=== PATIENT | male | born 1960 | race Caucasian/White ===

== ENCOUNTER 2020-05-26 16:33 | Emergency (ER) | payer OTHER ==
[~2020-05-26] VITALS: Ht 177 cm; Wt 100.0 kg
--- NOTE | 2020-05-26 18:08 | Diagnostic Imaging Report ---
EXAMINATION: Left ankle, 3 views. HISTORY: Twisted ankle, pain and swelling. COMPARISON: None available. FINDINGS: There is an oblique fracture through the distal left fibula at the lateral malleolus. The fracture extends to the ankle mortise. Joint spaces are preserved. Mild soft tissue swelling about the left ankle. IMPRESSION: Minimally displaced oblique fracture through the distal left fibula. Dictated by: Dictated on workstation # [id number]
[2020-05-26] MEDS ORDERED: HYDROcodone/APAP 7.5 MG/325 MG (LORTAB, LORCET PLUS) TABLET PO ONE (18:30)
--- NOTE | 2020-05-26 18:35 | ED Lower Extremity ---
General Chief Complaint: Lower Extremity Stated Complaint: FALL/L ANKLE INJ Nursing Triage Note: THE PT IS ASSISTED TO THE ROOM BY WHEELCHAIR. NO DISTRESS IS SEEN ON ARRIVAL. LOC IS NORMAL FOR THE PT. THE PT C/OF LEFT ANKLE PAIN. THE LEFT ANKLE IS SWOLLEN AND PAINFULL. Nursing Sepsis Screen: No Definite Risk History of Present Illness Date Seen by Provider: May 26, 2020 Time Seen by Provider: 19:00 Initial Comments This is a healthy-appearing 59-year-old male who presents to the ER with complaints of left ankle pain after twisting his ankle while fishing yesterday around 1800. States he was able to walk on it initially, however pain has progressively worsened and is unbearable with weight bearing. He has been using crutches to offset weight and reduce pain. Took Tylenol at 10 AM, and applied ice, which he reports improved symptoms. Denies loss of sensation, numbness or tingling. Allergies and Home Medications Allergies Coded Allergies: No Known Drug Allergies (Unverified , 05/26/20) Home Medications Hydrocodone/Acetaminophen 1 Each Tablet, 1 EACH PO Q6H PRN for PAIN-BREAKTHROUGH Prescribed by: NICK RUELAS on 05/26/20 1840 Patient Home Medication List Home Medication List Reviewed: Yes Review of Systems Constitutional: no symptoms reported EENTM: no symptoms reported Respiratory: no symptoms reported Cardiovascular: no symptoms reported Gastrointestinal: no symptoms reported Genitourinary: no symptoms reported Musculoskeletal: see HPI Skin: other (left ankle bruising) Psychiatric/Neurological: No Symptoms Reported Past Oxnuuwm-Sbcqdm-Jxysyg Hx Patient Social History Recent Foreign Travel: No Contact w/Someone Who Travel: No Recent Infectious Disease Expo: No Physical Abuse: No Sexual Abuse: No Mistreated: No Fear: No Physical Exam Vital Signs Vital Signs - First Documented 05/26/20 05/26/20 16:46 18:55 Temp 37.5 Pulse 97 Resp 16 B/P (MAP) 102/71 (81) Pulse Ox 96 Capillary Refill : Less Than 3 Seconds Height, Weight, BMI Height: '" Weight: lbs. oz. kg; 31.00 BMI Method: General Appearance: WD/WN, no apparent distress HEENT: PERRL/EOMI, normal ENT inspection Neck: full range of motion, normal inspection Cardiovascular: regular rate, rhythm, no murmur Respiratory: lungs clear, normal breath sounds, no respiratory distress Knees: bilateral knee non-tender, bilateral knee normal inspection, bilateral knee normal range of motion Ankles: left ankle bone tenderness, left ankle ecchymosis, left ankle limited range of motion, left ankle pain, left ankle soft tissue tenderness, left ankle swelling Neurologic/Psychiatric: no motor/sensory deficits, alert, normal mood/affect, oriented x 3 Skin: normal color, warm/dry Progress/Results/Core Measures Results/Orders My Orders Orders - NICK RUELAS APRN Ankle, Left, 3 Views (05/26/20 17:20) Hydrocodone/Apap 7.5/325 Tab (Lortab 7. (05/26/20 18:30) Vital Signs/I&O 05/26/20 05/26/20 16:46 18:55 Temp 37.5 37.4 Pulse 97 97 Resp 16 16 B/P (MAP) 102/71 (81) 106/75 Pulse Ox 96 Blood Pressure Mean: 81 Progress Progress Note : Progress Note Examination of left ankle shows obvious bruising and marked amount of swelling which is concerning for fracture. Images of left ankle ordered. Images show minimally displaced distal fibula fracture. He was placed in posterior leg splint. Neurovascular intact pre-and post-splint application. Tolerated well. Discussed following up with orthopedic provider this week. Requested a list of local orthopedic providers in the area so he can check with his insurance to see who is in network before for scheduling an appointment. Reviewed discharge plan of care and he is agreeable with plan. Diagnostic Imaging Diagonstic Imaging: Xray Plain Films/CT/US/NM/MRI: other (ankle, left ) Comments NAME: HERNÁNDEZBREANA B MED REC#: [id number] PT STATUS: REG ER : 1960 PHYSICIAN: NICK RUELAS APRN ADMIT DATE: 05/26/20/ER Signed Date of Exam:05/26/20 ANKLE, LEFT, 3 VIEWS EXAMINATION: Left ankle, 3 views. HISTORY: Twisted ankle, pain and swelling. COMPARISON: None available. FINDINGS: There is an oblique fracture through the distal left fibula at the lateral malleolus. The fracture extends to the ankle mortise. Joint spaces are preserved. Mild soft tissue swelling about the left ankle. IMPRESSION: Minimally displaced oblique fracture through the distal left fibula. Dictated by: Dictated on workstation # [id number] Dict: 05/26/201803 Trans: 05/26/[address] [facility] [phone] Interpreted by: GEORGI FLAHERTY DO Electronically signed by: GEORGI FLAHERTY DO 05/26/201815 Departure Impression Primary Impression: Fracture of distal fibula Disposition: HOME, SELF-CARE Condition: Stable/Unchanged Departure-Patient Inst. Referrals: DEVEN SURESH MD (PCP/Family) Primary Care Physician Patient Instructions: Fibula Fracture, How to Use Crutches Add. Discharge Instructions: Plan: 1. Discharge home. 2. No weight bearing on right foot. Use crutches when walking at all times. 3. Keep leg elevated for the next 72 hours. Use ice 20 minutes at a time 4-6x per day for swelling and pain. 4. Do not get splint wet, cover with bag or saran wrap when showering. 5. Follow up with Orthopedic surgeon of choice on Thursday. Local providers include: Dr. Reynoso of [facility], Dr. Isaac or [facility], or Dr. Solis of [facility]. You may also contact [facility]. 6. Take Hydrocodone 7.5/325mg by mouth every six hours as needed breakthrough for pain. 7. Return for any new or concerning symptoms. All discharge instructions reviewed with patient and/or family. Voiced understanding. Scripts Hydrocodone/Acetaminophen (Hydrocodone-Acetamin 7.5-325) 1 Each Tablet 1 EACH PO Q6H PRN for PAIN-BREAKTHROUGH, #20 TAB 0 Refills Prov: NICK RUELAS [employer] 05/26/20 NICK RUELAS [employer] May 26, 2020 18:35
[2020-05-26] MEDS ORDERED: HYDR-3817 PO (18:40)
[2020-05-26 18:55] VITALS: BP 106/75
== END 2020-05-26 18:58 | disposition home or self-care (01) ==
LOC: ER 16:35
DX: S82.432A Displaced oblique fracture of shaft of left fibula, initial encounter for closed fracture (principal); X50.1XXA Overexertion from prolonged static or awkward postures, initial encounter; Y93.89 Activity, other specified
CPT/HCPCS: 73610

== ENCOUNTER 2021-08-27 05:34 | Outpatient (CLI) | payer OTHER ==
[~2021-08-27] VITALS: Ht 183 cm; Wt 106.8 kg
[~2021-08-27 05:34] MED LIST: HYDR-3817 PO
[2021-08-27] MEDS ORDERED: ALBU0.63 IH (14:09)
[2021-08-27] MEDS ORDERED: TMSL.4C PO (14:09)
[2021-08-27] MEDS ORDERED: ATOR10TA66 PO (14:09)
[2021-08-27] MEDS ORDERED: LEVO25TA5 PO (14:09)
== END 2021-08-27 14:18 | disposition home or self-care (01) ==
LOC: PREOP 05:34
PROVIDERS: ATTEND Internal Medicine
DX: Z01.818 Encounter for other preprocedural examination (principal)

== ENCOUNTER 2021-08-30 07:26 | Day surgery (SDC) | payer OTHER ==
--- NOTE | 2021-08-26 13:06 | HISTORY AND PHYSICAL ---
DATE OF SERVICE: COLONOSCOPY HISTORY AND PHYSICAL HISTORY OF PRESENT ILLNESS: The patient is a 60-year-old white male referred by Annette Sandoval, nurse practitioner working for Dr. Zuluaga, for screening colonoscopy. He reports one other screening procedure 10 years ago and did not recall that any polyps or any problems were noted. He seemed to be of average risk. He is not aware of any family history for colon cancer or polyposis syndromes. He denies abdominal pain. Rarely, he will have some rectal pain and the passage of a small amount of blood in the stool that he has attributed to hemorrhoids. He reports that he has had skin tag removed and he feels that there is another one present and asked if this could not be removed at the same time of the procedure. Reports that his weight has been stable. Denies any diarrhea or constipation problems. PAST SURGICAL HISTORY: Significant for C3 fusion following a fracture when he was 13 or 14 involving a trampoline accident. No other surgeries noted. PAST MEDICAL HISTORY: Significant for hyperlipidemia and gastroesophageal reflux as well as Tamika's thyroiditis and prostatism. MEDICATIONS: Include tamsulosin 0.4 mg daily, pantoprazole 40 mg daily, atorvastatin 40 mg daily, and Synthroid 75 mcg daily. SOCIAL HISTORY: The patient works for the [employer] reading [employer]. No past smoking or drinking history reported. FAMILY HISTORY: Father of complications of Alzheimer disease at the age of 79. Mother of a stroke at the age of 78. REVIEW OF SYSTEMS: CONSTITUTIONAL: Denies night sweats, chills, fever, change in weight. GASTROINTESTINAL: As noted in the HPI. PULMONARY: Denies cough, wheezing or shortness of breath. CARDIOVASCULAR: Denies chest pain, dyspnea on exertion, orthopnea, PND or pedal edema. PHYSICAL EXAMINATION: GENERAL: Reveals a white male, appeared to be in no acute distress. VITAL SIGNS: Blood pressure 120/80. HEENT: Unremarkable. Sclerae nonicteric. Heart rate 72 and regular. CHEST: Clear to auscultation. CARDIOVASCULAR: Reveals a regular rate and rhythm without murmur, S3 or S4. ABDOMEN: Soft, supple without mass, organomegaly or tenderness. The patient has described sensation sometimes when he is straining in the left groin area, was concerned about a hernia on evaluation with Valsalva, could palpate no evidence for inguinal hernia, and there was no evidence for ventral hernia on inspection either. EXTREMITIES: Reveal no cyanosis, clubbing or edema. ASSESSMENT: The patient is set up for a screening colonoscopy. Prep instructions with Suprep kit were given and questions were answered. I thank you for the referral of this pleasant gentleman. Job ID: [id number] DocumentID: [id number] Dictated Date: 08/26/2021 11:52:33 Administrative Medical Director Date: 08/26/2021 12:44:50 Dictated By: ALTAGRACIA HILTON MD
[~2021-08-30] VITALS: Ht 183 cm; Wt 106.8 kg
[~2021-08-30 07:26] MED LIST changes: +ALBU0.63 IH; +ATOR10TA66 PO; +LEVO25TA5 PO; +TMSL.4C PO
[2021-08-30] MEDS ORDERED: LACTATED RINGERS 1,000 ML IV STA (07:40)
[2021-08-30] MEDS ORDERED: LACTATED RINGERS 1,000 ML IV ONE (07:42)
[2021-08-30] MEDS ORDERED: LIDOCAINE JELLY 2% 6 ML SYRINGE MM PRN (07:45)
[2021-08-30] MEDS ORDERED: PROPOFOL INJECTION 50 ML IV ONE (07:50)
[2021-08-30 07:55] VITALS: BP 120/70
--- NOTE | 2021-08-30 08:00 | Pre-Op Note & Conscious Sedat ---
Pre-Operative Progress Note H&P Reviewed The H&P was reviewed, patient examined and no changes noted. Date H&P Reviewed: Aug 30, 2021 Time H&P Reviewed: 08:00 Conscious Sedation Pre-Proced ASA Score 2 For ASA 3 and 4: Consider anesthesia and medical clearance. Also, for patients with a history of failed moderate sedation consider anesthesia. Airway Lungs Heart ASA score ASA 1: a normal healthy patient ASA 2: a patient with a mild systemic disease (mid diabetes, controlled hypertension, obesity ASA 3: a patient with a severe systemic disease that limits activity (angina, COPD, prior Myocardial infarction) ASA 4: a patient with an incapacitating disease that is a constant threat to life (CHF, renal failure) ASA 5: a moribund patient not expected to survive 24 hrs. (ruptured aneurysm) ASA 6: a declared brain- patient whose organs are being harvested. For emergent operations, add the letter E after the classification Mallampati Classification Grade 2 Sedation Plan Analgesia, Amnesia, Plan communicated to team members, Discussed options with patient/fam, Discussed risks with patient/fam The patient is an appropriate candidate to undergo the planned procedure, sedation, and anesthesia. The patient immediately re-assessed prior to indication. ALTAGRACIA HILTON MD Aug 30, 2021 08:00
[2021-08-30 08:50] VITALS: BP 82/55
[2021-08-30 09:32] VITALS: BP 105/70
--- NOTE | 2021-08-30 11:15 | Anesthesia-General Post-Op ---
MAC Patient Condition Mental Status/LOC: Same as Preop Cardiovascular: Satisfactory Nausea/Vomiting: Absent Respiratory: Satisfactory Pain: Controlled Complications: Absent Post Op Complications Complications None Follow Up Care/Instructions Patient Instructions None needed. Anesthesiology Discharge Order Discharge Order Patient was doing well this morning after the procedure, no complaints, stable vital signs, no apparent adverse anesthesia problems. BREANA SCHUMACHER DO Aug 30, 2021 11:15
--- NOTE | 2021-08-30 14:15 | OPERATIVE REPORT ---
DATE OF SERVICE: COLONOSCOPY SUMMARY INDICATION FOR THE PROCEDURE: Screening colonoscopy. DESCRIPTION OF PROCEDURE: Prior to undergoing colonoscopy, digital rectal evaluation was performed. Anal sphincter tone was normal and the perianal reflexes intact. The prostate was unremarkable to digital inspection as was the distal rectal vault and anal canal. The colonoscope was then inserted into the rectum and under direct visualization advanced to the cecum. The cecum was identified by identification of the ileocecal valve and the cecal strap. Photographic documentation was obtained. Careful inspection was made as the colonoscope was withdrawn. Quality of the prep was good except for some semi-solid stool in the cecum, see photograph. FINDINGS: There was no evidence for internal or external hemorrhoids. The rectum, sigmoid colon, descending colon, splenic flexure, transverse colon, hepatic flexure, ascending colon, and cecum were unremarkable with no evidence for neoplasia or diverticular disease. ASSESSMENT: Normal colonoscopy to the cecum including digital evaluation of the prostate. I would advocate consideration for repeat screening colonoscopy in 10 years as the patient is not aware of any family history for colon cancer. I thank you for the referral of this pleasant gentleman. Job ID: [id number] DocumentID: [id number] Dictated Date: 08/30/2021 08:50:58 Electronics Engineering Technologist Date: 08/30/2021 14:15:16 Dictated By: ALTAGRACIA HILTON MD
== END 2021-08-30 09:31 | disposition home or self-care (01) ==
LOC: ENDO 07:26
PROVIDERS: ATTEND Internal Medicine
DX: Z12.11 Encounter for screening for malignant neoplasm of colon (principal)